=== PATIENT | female | born 1955 | race Caucasian/White ===

== ENCOUNTER 2017-12-20 13:09 | Emergency (ER) | payer BC, OTHER ==
[2017-12-20 13:35] VITALS: BP 139/88; PULSE 74; TEMP 97.8; BMI 20.7
--- NOTE | 2017-12-20 14:07 | PDOC ---
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 The first time she was hit in the right frontal area with a thrown basketball, and a little while later headache and in the right parietal area with a served volleyball. She describes the impact as severe, knocking off her glasses, but she did not fall. Her only symptoms that they were excessive fatigue. Yesterday she felt well. But this morning she began to have intermittent nausea, hot and cold "flashes" and difficulty concentrating. Review of systems denies objective fever, URI symptoms, sore throat, cough, chest pain, shortness of breath, abdominal pain, vomiting or diarrhea, urinary tract symptoms including dysuria and frequency, vaginal bleeding or discharge, visual or focal neurologic symptoms, unsteadiness of gait. Remainder systems reviewed and found to be negative Past medical history: Negative for cardiac disease or diabetes. Mild hypothyroidism, with increase in her thyroid medication recently due to a low T3 level. Bilateral Dupuytren's contractures resistant to therapy. Social history: Denies tobacco alcohol or nonprescription drugs. Denies stress or anxiety, but appears to be somewhat anxious on examination. 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 Stable home and family Family history: Father with coronary artery disease later in life, underwent CABG in his late 60s. No cardiac disease in mother or sister. No other significant illnesses Physical exam: Alert oriented 3 well-developed well-nourished no acute distress cheerful and cooperative, although somewhat anxious. Afebrile, vital signs normal Head atraumatic. There is no evidence of trauma to the head including contusion , hematoma, abrasion, or laceration PERRLA 4 mm, fundi benign with sharp disc margins and good central venous pulsations ENT clear Neck without tenderness or deformity, full range of motion without pain, no bruits nodes or masses Chest clear, full breath sounds throughout bilaterally CV regular without murmur rub or gallop pulses full and symmetric no JVD or edema no bruits Abdomen nondistended, bowel sounds normal, soft without mass tenderness organomegaly Extremities no CCE Skin clear, no rash, adequate turgor and wet mucous membranes Neurological C2 to 12 intact. Strength full and symmetric. No focal sensory or motor deficits. Gait stable and unimpaired Impression: Minor head trauma could have resulted in mild concussion. Symptoms, however, are more suggestive of stress/anxiety or incubating viral infection Plan: CT of the brain, further supportive management depending on results. Past History - Past Medical History Allergies/Adverse Reactions: Allergies Allergy/AdvReac Type Severity Reaction Status Date / Time Penicillins Allergy "POSS Verified 12/20/17 13:24 LIVER TOXICITY" Home Medications: Ambulatory Orders Levothyroxine [Synthroid -] 88 mcg PO DAILY 07/20/15 Anemia: No Asthma: No Cancer: No Cardiac Disorders: No CVA: No COPD: No CHF: No Dementia: No Diabetes: No GI Disorders: No Disorders: No HTN: No Hypercholesterolemia: No Liver Disease: Yes Seizures: No Thyroid Disease: Yes (DAYNA'S DISEASE) - Surgical History Abdominal Surgery: No Appendectomy: No Cardiac Surgery: No Cholecystectomy: No Lung Surgery: No Neurologic Surgery: No Orthopedic Surgery: Yes (DUPREYNS DUPUYTREN'S CONTRACTURE, RIGHT 2011,) - Suicide/Smoking/Psychosocial Hx Smoking Status: No Smoking History: Former smoker Have you smoked in the past 12 months: No Number of Cigarettes Smoked Daily: 0 If you are a former smoker, when did you quit?: 1981 Information on smoking cessation initiated: No Hx Alcohol Use: No Drug/Substance Use Hx: No Substance Use Type: None Hx Substance Use Treatment: No *Physical Exam - Vital Signs Last Vital Signs Temp Pulse Resp BP Pulse Ox 97.8 F 74 20 139/88 97 12/20/17 13:10 12/20/17 13:10 12/20/17 13:10 12/20/17 13:10 12/20/17 13:10 Medical Decision Making - Medical Decision Making 12/20/17 14:53 CT as read by the radiologist is negative The patient's symptoms are more consistent with stress/anxiety or any incubating viral illness, then with intracranial trauma. However, a minor concussion cannot be excluded Rest, symptomatic treatment, and close follow-up recommended. Patient fully ambulatory and in no pain or other distress upon discharge with her to follow-up as directed or return to the emergency room if new or worsening symptoms *DC/Admit/Observation/Transfer Diagnosis at time of Disposition: Head injury Qualifiers: Encounter type: initial encounter Qualified Code(s): S09.90XA - Unspecified injury of head, initial encounter - Discharge Dispostion Disposition: HOME Condition at time of disposition: Stable Decision to Admit order: No - Referrals - Patient Instructions Printed Discharge Instructions: DI for Closed Head Injury Additional Instructions: Rest, avoid contact sports or vigorous physical exercise, Tylenol as needed. Avoid excessive visual stimulation, bright lights. Return to ER if symptoms worsen or new symptoms develop, otherwise see primary physician in 2 or 3 days for follow-up. - Post Discharge Activity Forms/Work/School Notes: Back to Work
== END 2017-12-20 15:12 | disposition home or self-care (01) ==
LOC: FER 13:09
DX: S09.90XA Unspecified injury of head, initial encounter (principal); W21.05XA Struck by basketball, initial encounter; Y93.67 Activity, basketball; Y92.219 Unspecified school as the place of occurrence of the external cause; Y99.0 Civilian activity done for income or pay; E06.3 Autoimmune thyroiditis; K76.9 Liver disease, unspecified; Z87.891 Personal history of nicotine dependence
CPT/HCPCS: 70450-TC; 99281-25

== ENCOUNTER 2022-08-03 06:21 | Emergency (ER) | payer OTHER ==
[2022-08-03 06:29] VITALS: TEMP 97.7; BMI 20.5
[2022-08-03] MEDS ORDERED: KETOROLAC TROMETHAMINE 15 MG/ML VIAL IVPUSH ONE (07:12)
[2022-08-03] MEDS ORDERED: SODIUM CHLORIDE 500 ML IV STA (07:13)
[2022-08-03] MEDS ORDERED: KETOROLAC TROMETHAMINE 15 MG/ML VIAL ONE (07:31)
[2022-08-03 08:09] LABS: URINE APPEARANCE CLOUDY; URINE BILIRUBIN NEGATIVE (NEGATIVE); URINE COLOR YELLOW; URINE GLUCOSE (UA) NEGATIVE (NEGATIVE); URINE KETONE NEGATIVE (NEGATIVE); URINE LEUK ESTERASE NEGATIVE (NEGATIVE); URINE NITRITE NEGATIVE (NEGATIVE); URINE PROTEIN NEGATIVE (NEGATIVE); URINE UROBILINOGEN 0.2 mg/dL (0.2-1.0)
[2022-08-03 08:10] LABS: POTASSIUM 4.1 mmol/L (3.5-5.1)
[2022-08-03 08:12] LABS: CALCIUM 9.6 mg/dL (8.5-10.1)
[2022-08-03 08:13] LABS: ALBUMIN 4.1 g/dl (3.4-5.0); BLOOD UREA NITROGEN 16.1 mg/dL (7-18)
[2022-08-03 08:16] LABS: CREATININE 0.8 mg/dL (0.55-1.3)
[2022-08-03 08:17] LABS: TOT PROT 7.2 g/dl (6.4-8.2)
[2022-08-03 08:18] LABS: BILIRUBIN,TOTAL 0.5 mg/dL (0.2-1)
[2022-08-03 08:36] LABS: BASO % 0.6 % (0-2.0); EOS % 0.8 % (0-4.5); HEMATOCRIT 36.8 % (32.4-45.2); HEMOGLOBIN 12.4 GM/dL (10.7-15.3); LYMPH % 14.3 % (8-40); MCH 31.4 pg (25.7-33.7); MCHC 33.6 g/dl (32.0-36.0); MEAN CELL VOLUME 93.2 fl (80-96); MEAN PLT VOLUME 10.1 fl (7.5-11.1); MONO % 11.1 % (3.8-10.2); NEUT % 73.2 % (42.8-82.8); PLATELET COUNT 153 10^3/uL (134-434); RBC 3.95 M/mm3 (3.60-5.2); RDW 12.6 % (11.6-15.6); WHITE BLOOD COUNT 7.4 K/mm3 (4.0-10.0)
[2022-08-03 10:14] VITALS: BP 128/63; PULSE 75; RESP 20
== END 2022-08-03 10:16 | disposition home or self-care (01) ==
LOC: JER 06:21
PROC: 3E0333Z Introduction of Anti-inflammatory into Peripheral Vein, Percutaneous Approach (ICD-10-PCS; principal; 2022-08-03)
PROC: 3E0337Z Introduction of Electrolytic and Water Balance Substance into Peripheral Vein, Percutaneous Approach (ICD-10-PCS; 2022-08-03)
DX: M54.50 Low back pain, unspecified (principal); R10.9 Unspecified abdominal pain
CPT/HCPCS: 36415; 74176-TC; 80053; 81003; 85025; 87086; 93005; 93010; 99284-25